=== PATIENT | female | born 1930 | race Caucasian/White ===

== ENCOUNTER 2017-05-07 18:13 | Emergency (ER) | payer MEDICARE, OTHER ==
[~2017-05-07] VITALS: Ht 162.6 cm; Wt 55.8 kg
[~2017-05-07 18:13] MED LIST changes: -TIMO.5OPSO BOTHEYES; +TIMOPTIC 0.5%1 EACH BOTHEYES
[2017-05-07 19:31] LABS: Source, Urine Clean Catch
[2017-05-07 19:36] LABS: Blood, Urine 1+ (Neg); Glucose Qualitative, Urine Neg (Neg); Ketones, Urine 1+ (Neg); Leukocyte Esterase, Urine 2+ (Neg); Nitrite, Urine Pos (Neg); Protein, Urine Neg (Neg); Urobilinogen, Urine 2+ (Normal)
[2017-05-07 19:44] LABS: Bilirubin, Urine 1+ (Neg)
[2017-05-07 19:45] LABS: Appearance, Urine Hazy (Clear); Color, Urine Yellow (P-Yellow)
[2017-05-07 19:46] LABS: Bacteria Many /hpf; Squamous Epithelial Cells Few /hpf (Few)
[2017-05-07] MEDS ORDERED: CEPH500 PO (20:11)
[2017-08-20] MEDS ORDERED: CEFD300 PO (01:13)
[2017-08-20] MEDS ORDERED: Zofran Odt4 MG PO (01:14)
[2017-09-08] MEDS ORDERED: RABE20 PO (18:53)
[2017-09-08] MEDS ORDERED: DULO60 PO (18:54)
[2017-09-08] MEDS ORDERED: ONDA4ODT (18:55)
[2017-09-08] MEDS ORDERED: Lomotil Tablet1 EACH PO (18:57)
[2017-09-10] MEDS ORDERED: Zofran Odt4 MG PO (14:34)
[2017-09-10] MEDS ORDERED: ACET325 PO (14:36)
[2017-09-10] MEDS ORDERED: TRAM50 PO (14:37)
[2017-10-21] MEDS ORDERED: Calcium + Vita1 EACH PO (11:35)
[2017-10-21] MEDS ORDERED: CIPR500 PO (11:36)
[2017-10-21] MEDS ORDERED: GAVILAX17 GM PO (14:51)
[2017-11-25] MEDS ORDERED: Alphagan P5 ML BOTHEYES (03:51)
[2017-11-25] MEDS ORDERED: CLOP75 PO (03:51)
[2017-11-25] MEDS ORDERED: BUDESONIDE EC3 MG PO (03:51)
[2017-11-25] MEDS ORDERED: LIDOCAINE PAIN1 EACH TOP (03:52)
[2017-11-25] MEDS ORDERED: DULO60 PO (03:52)
[2017-11-25] MEDS ORDERED: DOCU100 PO (03:52)
[2017-11-25] MEDS ORDERED: PANT20 PO (03:53)
[2017-11-25] MEDS ORDERED: TIMOPTIC 0.5%1 EACH BOTHEYES (03:54)
[2017-11-25] MEDS ORDERED: ALPR.25 PO (03:54)
[2017-11-25] MEDS ORDERED: ACET325 PO (03:54)
[2017-11-25] MEDS ORDERED: Antacid Maximu355 ML (03:55)
[2017-11-25] MEDS ORDERED: BISA10S PR (03:55)
[2017-11-25] MEDS ORDERED: TRAM50 PO (03:56)
[2017-11-25] MEDS ORDERED: LOPE2C PO (03:56)
[2017-11-25] MEDS ORDERED: ONDA4ODT MM ×2 (03:56→05:55)
[2017-11-25] MEDS ORDERED: Milk Of Ma400 MG/5 M PO (03:56)
[2017-12-11] MEDS ORDERED: Macrobid 100 M100 MG PO (14:12)
== END 2017-05-07 21:08 | disposition home or self-care (01) ==
LOC: ER 18:13
PROVIDERS: Emergency Medicine
DX: N39.0 Urinary tract infection, site not specified (principal); R42 Dizziness and giddiness; R19.7 Diarrhea, unspecified; E11.9 Type 2 diabetes mellitus without complications; K21.9 Gastro-esophageal reflux disease without esophagitis; E78.5 Hyperlipidemia, unspecified; F32.9 Major depressive disorder, single episode, unspecified; Z88.5 Allergy status to narcotic agent; Z88.8 Allergy status to other drugs, medicaments and biological substances; Z79.84 Long term (current) use of oral hypoglycemic drugs; Z79.899 Other long term (current) drug therapy
CPT/HCPCS: 81001; 93005; 93010; 96360; 99283; J7030; P9612

== ENCOUNTER → 2017-05-07 | Outpatient (CLI) | payer MEDICARE, OTHER ==
[~2017-05-07] MED LIST: ACET325 PO; ANTIBIOTIC; ASPI81EC; ATOR40TA PO; Alphagan P 5ML5 ML IO; Amoxicillin500 MG PO; Ativan1 MG PO; BRIM.15SO OD; BUDESONIDE EC3 MG PO; Bacid1 EACH PO; CALCAVITD PO; CEFUROXIME PO; CEPH500 PO; CHOL10002 PO; CIPR250; CIPR500 PO; CLOP75 PO; Cyclobenzaprine5 MG PO; DOCU100 PO; ENAL2.5 PO; ENAL5 PO; EZET10 PO; EZET10-20 PO; Entocort EC 3 mg3 MG PO; Esgic Tablet1 EACH PO; FERR325 PO; FERSU300 PO; Ferrous Sulfat325 MG PO; Flector1 EACH TD; GAVILAX17 GM PO; GLIP10ER PO; GLIP2.5ER; HYDACE5; HYDMOR2 PO; HYDR1TAB94 PO; IBAN2.5 PO; LEVFLO250 PO; LEVFLO500 PO; LIDO5TP TOP; LIDOCAINE1 EACH TOP; MECL25 PO; MESA400ER PO; META800 PO; METF500; METF500 PO; METF500C PO; METR500 PO; Monurol3 GM PO; NITR100 PO; NITR100CA PO; NITR50 PO; Norco 5-325 Ta1 EACH PO; ONDA4 PO; OXYACE7.5T PO; PIOG15 PO; PIOG30 PO; RABE20 PO; ROSI2; SERT100 PO; SERT25; SIMV10 PO; TIMO.5OPSO BOTHEYES; TOLT4 PO; VALA500; VITORIN PO; VYTORIN; Zofran Odt4 MG SL; [UNRECOGNIZED DRUG - REMARK]; sertaline PO
[2017-05-07 14:41] LABS: BASOPHILS ABSOLUTE AUTO 0.01 K/mm3 (0.00-0.23); BASOPHILS PERCENT AUTO 0 % (0-2); EOSINOPHILS ABSOLUTE AUTO 0.01 K/mm3 (0.00-0.68); EOSINOPHILS PERCENT AUTO 0 % (0-6); Hematocrit 37.9 % (33.0-51.0); IMMATURE GRAN PERCENT AUTO 0 % (0-1); LYMPHOCYTES ABSOLUTE AUTO 1.54 K/mm3 (0.84-5.20); LYMPHOCYTES PERCENT AUTO 40 % (21-46); MONOCYTES ABSOLUTE AUTO 0.32 K/mm3 (0.16-1.47); MONOCYTES PERCENT AUTO 8 % (4-13); Mean Corpuscular HGB 30.2 pg (26.0-34.0); Mean Corpuscular HGB Conc 31.7 g/dL (31.5-36.5); Mean Corpuscular Volume 96 fL (80-100); Mean Platelet Volume 10.8 fL (9.1-12.4); NEUTROPHILS ABSOLUTE AUTO 1.97 K/mm3 (1.96-9.15); NEUTROPHILS PERCENT AUTO 51 % (41-73); Platelet Count 249 K/mm3 (150-400); RDW Coefficient Variation 14.4 % (11.7-14.2); RDW Standard Deviation 50.7 fL (35.1-46.3); Red Blood Cell Count 3.97 M/mm3 (3.80-5.20); White Blood Cell Count 3.85 K/mm3 (4.00-11.30)
[2017-05-07 15:11] LABS: Alanine Aminotransfer (ALT/SGP 15 U/L (12-78); Albumin, Blood 3.9 g/dL (3.4-5.0); Alk Phos 87 U/L (50-136); Anion Gap 11 mmol/L (6-16); Aspartate Aminotrans (AST/SGOT 18 U/L (12-37); Bilirubin, Total 0.7 mg/dL (0.1-1.0); Blood Urea Nitrogen 19 mg/dL (8-24); CO2, Blood 24 mmol/L (21-32); Calcium, Blood 9.5 mg/dL (8.5-10.1); Chloride, Blood 105 mmol/L (98-108); Creatinine, Blood 0.61 mg/dL (0.40-1.00); Glomerular Filtration Rate >60 (60-); Glucose, Blood 147 mg/dL (70-99); Potassium, Blood 3.7 mmol/L (3.5-5.5); Sodium, Blood 140 mmol/L (136-145); Total Protein, Blood 7.9 g/dL (6.4-8.2)
== END | disposition home or self-care (01) ==
LOC: LAB SHORT 14:30 → LAB 14:30
DX: E11.9 Type 2 diabetes mellitus without complications (principal); F41.8 Other specified anxiety disorders; R60.0 Localized edema; R30.9 Painful micturition, unspecified
CPT/HCPCS: 80053; 83036; 85025; 87077; 87086; 87186

== ENCOUNTER 2017-06-15 04:29 | Emergency (ER) | payer MEDICARE, OTHER ==
[~2017-06-15] VITALS: Ht 162.6 cm; Wt 59.0 kg
[~2017-06-15 04:29] MED LIST changes: +TIMO.5OPSO BOTHEYES; -TIMOPTIC 0.5%1 EACH BOTHEYES
== END 2017-06-15 07:50 | disposition home or self-care (01) ==
LOC: ER 04:29
DX: S01.81XA Laceration without foreign body of other part of head, initial encounter (principal); E11.9 Type 2 diabetes mellitus without complications; K21.9 Gastro-esophageal reflux disease without esophagitis; E78.5 Hyperlipidemia, unspecified; F32.9 Major depressive disorder, single episode, unspecified; Z79.01 Long term (current) use of anticoagulants; Z88.5 Allergy status to narcotic agent; Z88.8 Allergy status to other drugs, medicaments and biological substances; Z91.09 Other allergy status, other than to drugs and biological substances; Z79.899 Other long term (current) drug therapy; Z79.84 Long term (current) use of oral hypoglycemic drugs; W18.09XA Striking against other object with subsequent fall, initial encounter
CPT/HCPCS: 12011; 70450; 99284

== ENCOUNTER 2017-08-07 09:30 | Inpatient (IN) | payer MEDICARE, OTHER ==
[~2017-08-07] VITALS: Ht 162.6 cm; Wt 59.9 kg
[~2017-08-07 09:30] MED LIST changes: -TIMO.5OPSO BOTHEYES; +TIMOPTIC 0.5%1 EACH BOTHEYES
[2017-08-07 10:39] LABS: BASOPHILS ABSOLUTE AUTO 0.01 K/mm3 (0.00-0.23); BASOPHILS PERCENT AUTO 0 % (0-2); EOSINOPHILS ABSOLUTE AUTO 0.02 K/mm3 (0.00-0.68); EOSINOPHILS PERCENT AUTO 0 % (0-6); Hematocrit 28.8 % (33.0-51.0); Hemoglobin 9.4 g/dL (11.5-16.0); IMMATURE GRAN ABSOLUTE AUTO 0.02 K/mm3 (0.00-0.10); IMMATURE GRAN PERCENT AUTO 0 % (0-1); LYMPHOCYTES ABSOLUTE AUTO 0.98 K/mm3 (0.84-5.20); LYMPHOCYTES PERCENT AUTO 20 % (21-46); MONOCYTES ABSOLUTE AUTO 0.41 K/mm3 (0.16-1.47); MONOCYTES PERCENT AUTO 8 % (4-13); Mean Corpuscular HGB 31.5 pg (26.0-34.0); Mean Corpuscular HGB Conc 32.6 g/dL (31.5-36.5); Mean Corpuscular Volume 97 fL (80-100); Mean Platelet Volume 10.2 fL (9.1-12.4); NEUTROPHILS ABSOLUTE AUTO 3.46 K/mm3 (1.96-9.15); NEUTROPHILS PERCENT AUTO 71 % (41-73); Platelet Count 180 K/mm3 (150-400); RDW Coefficient Variation 14.1 % (11.7-14.2); RDW Standard Deviation 50.5 fL (35.1-46.3); Red Blood Cell Count 2.98 M/mm3 (3.80-5.20)
[2017-08-07 10:57] LABS: Alanine Aminotransfer (ALT/SGP 13 U/L (12-78); Albumin, Blood 2.4 g/dL (3.4-5.0); Albumin/Globulin Ratio 0.8 (0.8-1.8); Alk Phos 89 U/L (50-136); Anion Gap 7 mmol/L (6-16); Aspartate Aminotrans (AST/SGOT 12 U/L (12-37); Bilirubin, Total 0.3 mg/dL (0.1-1.0); Blood Urea Nitrogen 18 mg/dL (8-24); Bun/Creatinine Ratio 35.7 (12.0-20.0); CO2, Blood 29 mmol/L (21-32); Calcium, Blood 8.2 mg/dL (8.5-10.1); Chloride, Blood 109 mmol/L (98-108); Globulin, Blood 2.9 g/dL (2.2-4.0); Glomerular Filtration Rate >60 (60-); Glucose, Blood 126 mg/dL (70-99); Potassium, Blood 3.6 mmol/L (3.5-5.5); Sodium, Blood 145 mmol/L (136-145); Total Protein, Blood 5.3 g/dL (6.4-8.2)
[2017-08-07 22:12] LABS: Bilirubin, Urine Neg (Neg); Blood, Urine 1+ (Neg); Glucose Qualitative, Urine Neg (Neg); Ketones, Urine Neg (Neg); Leukocyte Esterase, Urine 1+ (Neg); Nitrite, Urine Pos (Neg); Protein, Urine Neg (Neg); Urobilinogen, Urine 1+ (Normal)
[2017-08-07 22:16] LABS: Appearance, Urine Hazy (Clear); Color, Urine Yellow (P-Yellow)
[2017-08-07 22:22] LABS: White Blood Cells, Urine 25-50 /hpf (0-5)
[2017-08-07 22:23] LABS: Bacteria Many /hpf; Mucus Light ([, 0-Heavy]); Red Blood Cells, Urine Rare /hpf (0-2); Squamous Epithelial Cells Few /hpf (Few)
[2017-08-09] MEDS ORDERED: ACET325 PO (10:51)
[2017-08-09] MEDS ORDERED: Calcitonin-Sal3.7 ML (10:52)
[2017-08-09] MEDS ORDERED: Alphagan P5 ML BOTHEYES (10:53)
[2017-08-09] MEDS ORDERED: GAVILAX17 GM PO (10:54)
[2017-08-09] MEDS ORDERED: TRAM50 PO (10:58)
[2017-08-20] MEDS ORDERED: CEFD300 PO (01:13)
[2017-08-20] MEDS ORDERED: Zofran Odt4 MG PO (01:14)
== END 2017-08-10 11:13 | DRG 543 ==
LOC: ER 09:30 → MEDS 13:27 → EDPENDDIS 08-09 10:19 → ENPENDDIS 08-09 10:19 → MEDS 08-10 11:13
PROVIDERS: Emergency Medicine
DX: M48.56XA Collapsed vertebra, not elsewhere classified, lumbar region, initial encounter for fracture (principal); N39.0 Urinary tract infection, site not specified; B96.20 Unspecified Escherichia coli [E. coli] as the cause of diseases classified elsewhere; E11.9 Type 2 diabetes mellitus without complications; E78.5 Hyperlipidemia, unspecified; M85.80 Other specified disorders of bone density and structure, unspecified site; R32 Unspecified urinary incontinence; M47.896 Other spondylosis, lumbar region; H40.9 Unspecified glaucoma; H91.90 Unspecified hearing loss, unspecified ear; Z66 Do not resuscitate; F41.9 Anxiety disorder, unspecified; F32.9 Major depressive disorder, single episode, unspecified; I25.10 Atherosclerotic heart disease of native coronary artery without angina pectoris; Z91.81 History of falling; R29.6 Repeated falls; Z79.899 Other long term (current) drug therapy; Z79.84 Long term (current) use of oral hypoglycemic drugs; Z79.01 Long term (current) use of anticoagulants; Z95.5 Presence of coronary angioplasty implant and graft; Z87.440 Personal history of urinary (tract) infections; Z86.73 Personal history of transient ischemic attack (TIA), and cerebral infarction without residual deficits; Z85.819 Personal history of malignant neoplasm of unspecified site of lip, oral cavity, and pharynx; Z88.8 Allergy status to other drugs, medicaments and biological substances; Z88.5 Allergy status to narcotic agent
CPT/HCPCS: 72100; 80053; 81001; 82947; 85025; 87077; 87081; 87086; 87186; 96374; 96375; 97116; 97162; 97166; 97530; 97535; 99285-25; G8978; G8979; G8987; G8988; J0630; J0696; J1650; J2405; J3010; J7030

== ENCOUNTER 2017-08-26 18:10 | Inpatient (IN) | payer MEDICARE, OTHER ==
[~2017-08-26] VITALS: Ht 162.6 cm; Wt 61.8 kg
[~2017-08-26 18:10] MED LIST changes: +Alphagan P5 ML BOTHEYES; +CEFD300 PO; +Calcitonin-Sal3.7 ML; +TRAM50 PO; +Zofran Odt4 MG PO
[2017-08-26 20:25] LABS: BASOPHILS ABSOLUTE AUTO 0.02 K/mm3 (0.00-0.23); BASOPHILS PERCENT AUTO 0 % (0-2); EOSINOPHILS ABSOLUTE AUTO 0.01 K/mm3 (0.00-0.68); EOSINOPHILS PERCENT AUTO 0 % (0-6); Hematocrit 31.8 % (33.0-51.0); Hemoglobin 10.5 g/dL (11.5-16.0); IMMATURE GRAN ABSOLUTE AUTO 0.03 K/mm3 (0.00-0.10); IMMATURE GRAN PERCENT AUTO 0 % (0-1); LYMPHOCYTES ABSOLUTE AUTO 1.06 K/mm3 (0.84-5.20); LYMPHOCYTES PERCENT AUTO 11 % (21-46); MONOCYTES PERCENT AUTO 9 % (4-13); Mean Corpuscular HGB 30.6 pg (26.0-34.0); Mean Corpuscular Volume 93 fL (80-100); Mean Platelet Volume 9.9 fL (9.1-12.4); NEUTROPHILS PERCENT AUTO 80 % (41-73); Platelet Count 268 K/mm3 (150-400); RDW Coefficient Variation 13.3 % (11.7-14.2); RDW Standard Deviation 45.1 fL (35.1-46.3); Red Blood Cell Count 3.43 M/mm3 (3.80-5.20); White Blood Cell Count 9.42 K/mm3 (4.00-11.30)
[2017-08-26 20:44] LABS: Alanine Aminotransfer (ALT/SGP 16 U/L (12-78); Albumin, Blood 2.3 g/dL (3.4-5.0); Albumin/Globulin Ratio 0.7 (0.8-1.8); Alk Phos 140 U/L (50-136); Anion Gap 9 mmol/L (6-16); Aspartate Aminotrans (AST/SGOT 12 U/L (12-37); Bilirubin, Total 0.4 mg/dL (0.1-1.0); Blood Urea Nitrogen 23 mg/dL (8-24); Bun/Creatinine Ratio 35.1 (12.0-20.0); CO2, Blood 25 mmol/L (21-32); Calcium, Blood 8.1 mg/dL (8.5-10.1); Chloride, Blood 105 mmol/L (98-108); Creatinine, Blood 0.66 mg/dL (0.40-1.00); Globulin, Blood 3.4 g/dL (2.2-4.0); Glomerular Filtration Rate >60 (60-); Glucose, Blood 173 mg/dL (70-99); Potassium, Blood 3.8 mmol/L (3.5-5.5); Sodium, Blood 139 mmol/L (136-145); Total Protein, Blood 5.7 g/dL (6.4-8.2)
[2017-08-27 08:49] LABS: Source, Urine Catheter
[2017-08-27 09:08] LABS: Bilirubin, Urine Neg (Neg); Blood, Urine Neg (Neg); Glucose Qualitative, Urine Neg (Neg); Ketones, Urine Neg (Neg); Leukocyte Esterase, Urine 2+ (Neg); Nitrite, Urine Pos (Neg); Protein, Urine Neg (Neg); Specific Gravity, Urine 1.015 (1.003-1.022); Urobilinogen, Urine NORM (Normal)
[2017-08-27 09:36] LABS: Appearance, Urine Clear (Clear); Color, Urine Yellow (P-Yellow)
[2017-08-27 09:37] LABS: Bacteria Many /hpf; Red Blood Cells, Urine Not Seen /hpf (0-2); Squamous Epithelial Cells Few /hpf (Few); Yeast/Fungi Urine Mod /hpf
[2017-08-27 09:38] LABS: White Blood Cells, Urine 25-50 /hpf (0-5)
[2017-08-27] MEDS ORDERED: ALPR.25 PO (17:09)
[2017-08-29 04:40] LABS: BASOPHILS ABSOLUTE AUTO 0.02 K/mm3 (0.00-0.23); BASOPHILS PERCENT AUTO 0 % (0-2); EOSINOPHILS ABSOLUTE AUTO 0.03 K/mm3 (0.00-0.68); EOSINOPHILS PERCENT AUTO 1 % (0-6); Hemoglobin 8.7 g/dL (11.5-16.0); IMMATURE GRAN ABSOLUTE AUTO 0.01 K/mm3 (0.00-0.10); IMMATURE GRAN PERCENT AUTO 0 % (0-1); LYMPHOCYTES ABSOLUTE AUTO 1.17 K/mm3 (0.84-5.20); LYMPHOCYTES PERCENT AUTO 22 % (21-46); MONOCYTES PERCENT AUTO 10 % (4-13); Mean Corpuscular HGB 30.1 pg (26.0-34.0); Mean Corpuscular HGB Conc 32.2 g/dL (31.5-36.5); Mean Corpuscular Volume 93 fL (80-100); NEUTROPHILS ABSOLUTE AUTO 3.55 K/mm3 (1.96-9.15); NEUTROPHILS PERCENT AUTO 67 % (41-73); Platelet Count 222 K/mm3 (150-400); RDW Coefficient Variation 13.3 % (11.7-14.2); RDW Standard Deviation 45.4 fL (35.1-46.3); Red Blood Cell Count 2.89 M/mm3 (3.80-5.20); White Blood Cell Count 5.28 K/mm3 (4.00-11.30)
[2017-08-29 04:57] LABS: Anion Gap 7 mmol/L (6-16); Blood Urea Nitrogen 16 mg/dL (8-24); Bun/Creatinine Ratio 31.4 (12.0-20.0); CO2, Blood 23 mmol/L (21-32); Calcium, Blood 7.5 mg/dL (8.5-10.1); Chloride, Blood 110 mmol/L (98-108); Creatinine, Blood 0.51 mg/dL (0.40-1.00); Glomerular Filtration Rate >60 (60-); Glucose, Blood 126 mg/dL (70-99); Potassium, Blood 3.7 mmol/L (3.5-5.5); Sodium, Blood 140 mmol/L (136-145)
[2017-08-29] MEDS ORDERED: GLIP5ER PO (16:22)
[2017-08-29] MEDS ORDERED: OXYB5 PO (16:28)
[2017-08-29] MEDS ORDERED: PANT20 PO (16:38)
== END 2017-08-29 16:50 | disposition home or self-care (01) | DRG 387 ==
LOC: ER 18:10 → MEDS 18:11 → ENPENDDIS 08-29 15:57 → MEDS 08-29 16:50
PROVIDERS: Emergency Medicine; Internal Medicine
DX: K51.90 Ulcerative colitis, unspecified, without complications (principal); D64.9 Anemia, unspecified; E11.9 Type 2 diabetes mellitus without complications; R82.79 Other abnormal findings on microbiological examination of urine; B96.20 Unspecified Escherichia coli [E. coli] as the cause of diseases classified elsewhere; I10 Essential (primary) hypertension; H40.9 Unspecified glaucoma; I25.10 Atherosclerotic heart disease of native coronary artery without angina pectoris; Z66 Do not resuscitate; M48.56XG Collapsed vertebra, not elsewhere classified, lumbar region, subsequent encounter for fracture with delayed healing; N95.2 Postmenopausal atrophic vaginitis; M48.54XG Collapsed vertebra, not elsewhere classified, thoracic region, subsequent encounter for fracture with delayed healing; Z96.642 Presence of left artificial hip joint; Z96.652 Presence of left artificial knee joint; E78.5 Hyperlipidemia, unspecified; Z79.899 Other long term (current) drug therapy; Z90.49 Acquired absence of other specified parts of digestive tract; Z87.440 Personal history of urinary (tract) infections; Z98.890 Other specified postprocedural states; Z79.84 Long term (current) use of oral hypoglycemic drugs; Z88.5 Allergy status to narcotic agent; Z88.8 Allergy status to other drugs, medicaments and biological substances; Z86.73 Personal history of transient ischemic attack (TIA), and cerebral infarction without residual deficits; Z87.442 Personal history of urinary calculi
CPT/HCPCS: 36415; 74176; 80048; 80053; 81001; 82947; 83036; 83690; 85025; 85651; 87086; 87493; 96361; 96372; 96374; 96375; 96376; 97161; 97166; 97530; 99285-25; C9113; G0378; G0515; G8978; G8979; G8987; G8988; J0694; J0697; J1650; J2405; J3010; J7030; J7120

== ENCOUNTER 2017-09-17 21:37 | Emergency (ER) | payer MEDICARE, OTHER ==
[~2017-09-17] VITALS: Ht 160 cm; Wt 59.0 kg
[~2017-09-17 21:37] MED LIST changes: +ALPR.25 PO; +DULO60; +GLIP5ER PO; +Lomotil Tablet1 EACH PO; +ONDA4ODT; +OXYB5 PO; +PANT20 PO
[2017-09-17 22:08] LABS: BASOPHILS ABSOLUTE AUTO 0.01 K/mm3 (0.00-0.23); BASOPHILS PERCENT AUTO 0 % (0-2); EOSINOPHILS ABSOLUTE AUTO 0.01 K/mm3 (0.00-0.68); EOSINOPHILS PERCENT AUTO 0 % (0-6); Hematocrit 32.2 % (33.0-51.0); Hemoglobin 10.6 g/dL (11.5-16.0); IMMATURE GRAN ABSOLUTE AUTO 0.01 K/mm3 (0.00-0.10); IMMATURE GRAN PERCENT AUTO 0 % (0-1); LYMPHOCYTES ABSOLUTE AUTO 1.26 K/mm3 (0.84-5.20); LYMPHOCYTES PERCENT AUTO 25 % (21-46); MONOCYTES ABSOLUTE AUTO 0.58 K/mm3 (0.16-1.47); MONOCYTES PERCENT AUTO 12 % (4-13); Mean Corpuscular HGB 30.5 pg (26.0-34.0); Mean Corpuscular HGB Conc 32.9 g/dL (31.5-36.5); Mean Corpuscular Volume 93 fL (80-100); Mean Platelet Volume 10.1 fL (9.1-12.4); NEUTROPHILS ABSOLUTE AUTO 3.11 K/mm3 (1.96-9.15); NEUTROPHILS PERCENT AUTO 63 % (41-73); Platelet Count 258 K/mm3 (150-400); RDW Coefficient Variation 14.4 % (11.7-14.2); RDW Standard Deviation 49.5 fL (35.1-46.3); Red Blood Cell Count 3.47 M/mm3 (3.80-5.20); White Blood Cell Count 4.98 K/mm3 (4.00-11.30)
[2017-09-17 22:27] LABS: Alanine Aminotransfer (ALT/SGP 14 U/L (12-78); Albumin, Blood 2.5 g/dL (3.4-5.0); Albumin/Globulin Ratio 0.7 (0.8-1.8); Alk Phos 122 U/L (50-136); Anion Gap 9 mmol/L (6-16); Aspartate Aminotrans (AST/SGOT 13 U/L (12-37); Bilirubin, Total 0.5 mg/dL (0.1-1.0); Blood Urea Nitrogen 18 mg/dL (8-24); Bun/Creatinine Ratio 37.7 (12.0-20.0); CO2, Blood 29 mmol/L (21-32); Calcium, Blood 8.1 mg/dL (8.5-10.1); Chloride, Blood 103 mmol/L (98-108); Creatinine, Blood 0.48 mg/dL (0.40-1.00); Globulin, Blood 3.6 g/dL (2.2-4.0); Glomerular Filtration Rate >60 (60-); Glucose, Blood 108 mg/dL (70-99); Magnesium, Blood 1.5 mg/dL (1.6-2.4); Potassium, Blood 3.5 mmol/L (3.5-5.5); Sodium, Blood 141 mmol/L (136-145); Total Protein, Blood 6.1 g/dL (6.4-8.2)
[2017-09-18] MEDS ORDERED: ONDA4ODT MM (02:03)
[2017-09-18] MEDS ORDERED: Zofran Odt4 MG PO (02:08)
== END 2017-09-18 02:20 | disposition home or self-care (01) ==
LOC: ER 21:37
PROVIDERS: Emergency Medicine
DX: R11.2 Nausea with vomiting, unspecified (principal); R19.7 Diarrhea, unspecified; E83.42 Hypomagnesemia; E11.9 Type 2 diabetes mellitus without complications; K21.9 Gastro-esophageal reflux disease without esophagitis; F32.9 Major depressive disorder, single episode, unspecified; Z88.5 Allergy status to narcotic agent; Z88.8 Allergy status to other drugs, medicaments and biological substances; Z91.09 Other allergy status, other than to drugs and biological substances; Z79.899 Other long term (current) drug therapy; Z79.84 Long term (current) use of oral hypoglycemic drugs
CPT/HCPCS: 36415; 74176; 80053; 83690; 83735; 85025; 96365; 96367; 96375; 99284-25; J2405; J3475; J3480; J7030

== ENCOUNTER 2017-10-05 07:59 | Emergency (ER) | payer MEDICARE, OTHER ==
[~2017-10-05] VITALS: Ht 162.6 cm; Wt 61.2 kg
[~2017-10-05 07:59] MED LIST changes: +ONDA4ODT MM
[2017-10-05] MEDS ORDERED: LIDO700A20 TOP (09:27)
[2017-10-05] MEDS ORDERED: Ultram50 MG PO (09:27)
== END 2017-10-05 10:39 | disposition home or self-care (01) ==
LOC: ER 07:59
DX: S32.039D Unspecified fracture of third lumbar vertebra, subsequent encounter for fracture with routine healing (principal); S22.089D Unspecified fracture of T11-T12 vertebra, subsequent encounter for fracture with routine healing; E11.9 Type 2 diabetes mellitus without complications; K21.9 Gastro-esophageal reflux disease without esophagitis; E78.5 Hyperlipidemia, unspecified; F32.9 Major depressive disorder, single episode, unspecified; Z88.5 Allergy status to narcotic agent; Z91.048 Other nonmedicinal substance allergy status; Z88.8 Allergy status to other drugs, medicaments and biological substances; Z79.899 Other long term (current) drug therapy; Z79.84 Long term (current) use of oral hypoglycemic drugs; Z79.01 Long term (current) use of anticoagulants
CPT/HCPCS: 99283

== ENCOUNTER 2017-10-09 21:43 | Emergency (ER) | payer MEDICARE, OTHER ==
[~2017-10-09] VITALS: Ht 162.6 cm; Wt 61.2 kg
[~2017-10-09 21:43] MED LIST changes: +LIDO700A20 TOP; +Ultram50 MG PO
== END 2017-10-10 01:30 | disposition home or self-care (01) ==
LOC: ER 21:43
DX: E11.649 Type 2 diabetes mellitus with hypoglycemia without coma (principal); Z88.8 Allergy status to other drugs, medicaments and biological substances; Z88.5 Allergy status to narcotic agent; Z79.899 Other long term (current) drug therapy; K21.9 Gastro-esophageal reflux disease without esophagitis; E78.5 Hyperlipidemia, unspecified; F32.9 Major depressive disorder, single episode, unspecified
CPT/HCPCS: 82947; 99284

== ENCOUNTER 2017-10-10 07:15 | Emergency (ER) | payer MEDICARE, OTHER ==
[~2017-10-10] VITALS: Ht 162.6 cm; Wt 62.1 kg
[2017-10-10 08:31] LABS: BASOPHILS ABSOLUTE AUTO 0.01 K/mm3 (0.00-0.23); BASOPHILS PERCENT AUTO 0 % (0-2); EOSINOPHILS ABSOLUTE AUTO 0.03 K/mm3 (0.00-0.68); EOSINOPHILS PERCENT AUTO 1 % (0-6); Hematocrit 31.7 % (33.0-51.0); Hemoglobin 10.3 g/dL (11.5-16.0); IMMATURE GRAN ABSOLUTE AUTO 0.01 K/mm3 (0.00-0.10); IMMATURE GRAN PERCENT AUTO 0 % (0-1); LYMPHOCYTES ABSOLUTE AUTO 0.69 K/mm3 (0.84-5.20); LYMPHOCYTES PERCENT AUTO 13 % (21-46); MONOCYTES ABSOLUTE AUTO 0.37 K/mm3 (0.16-1.47); MONOCYTES PERCENT AUTO 7 % (4-13); Mean Corpuscular HGB 30.4 pg (26.0-34.0); Mean Corpuscular HGB Conc 32.5 g/dL (31.5-36.5); Mean Corpuscular Volume 94 fL (80-100); Mean Platelet Volume 9.9 fL (9.1-12.4); NEUTROPHILS ABSOLUTE AUTO 4.38 K/mm3 (1.96-9.15); NEUTROPHILS PERCENT AUTO 80 % (41-73); Platelet Count 274 K/mm3 (150-400); RDW Coefficient Variation 16.6 % (11.7-14.2); RDW Standard Deviation 56.7 fL (35.1-46.3); Red Blood Cell Count 3.39 M/mm3 (3.80-5.20); White Blood Cell Count 5.49 K/mm3 (4.00-11.30)
[2017-10-10 08:44] LABS: Alanine Aminotransfer (ALT/SGP 21 U/L (12-78); Albumin, Blood 2.3 g/dL (3.4-5.0); Albumin/Globulin Ratio 0.6 (0.8-1.8); Alk Phos 114 U/L (50-136); Anion Gap 5 mmol/L (6-16); Aspartate Aminotrans (AST/SGOT 24 U/L (12-37); Bilirubin, Total 0.5 mg/dL (0.1-1.0); Blood Urea Nitrogen 25 mg/dL (8-24); Bun/Creatinine Ratio 45.5 (12.0-20.0); CO2, Blood 31 mmol/L (21-32); Calcium, Blood 7.9 mg/dL (8.5-10.1); Chloride, Blood 103 mmol/L (98-108); Creatinine, Blood 0.55 mg/dL (0.40-1.00); Globulin, Blood 3.7 g/dL (2.2-4.0); Glomerular Filtration Rate >60 (60-); Glucose, Blood 130 mg/dL (70-99); Potassium, Blood 3.3 mmol/L (3.5-5.5); Sodium, Blood 139 mmol/L (136-145)
== END 2017-10-10 11:16 | disposition home or self-care (01) ==
LOC: ER 07:15
PROVIDERS: Emergency Medicine
DX: E11.649 Type 2 diabetes mellitus with hypoglycemia without coma (principal); G89.29 Other chronic pain; Z88.5 Allergy status to narcotic agent; Z88.8 Allergy status to other drugs, medicaments and biological substances; Z91.048 Other nonmedicinal substance allergy status; Z79.899 Other long term (current) drug therapy; Z79.84 Long term (current) use of oral hypoglycemic drugs
CPT/HCPCS: 36415; 80053; 82947; 85025; 99283

== ENCOUNTER 2017-10-15 02:21 | Observation (INO) | payer MEDICARE, OTHER ==
[~2017-10-15] VITALS: Ht 162.6 cm; Wt 61.2 kg
[~2017-10-15 02:21] MED LIST changes: -DULO60; +DULO60 PO
[2017-10-15 03:42] LABS: BASOPHILS ABSOLUTE AUTO 0.02 K/mm3 (0.00-0.23); BASOPHILS PERCENT AUTO 0 % (0-2); EOSINOPHILS ABSOLUTE AUTO 0.01 K/mm3 (0.00-0.68); EOSINOPHILS PERCENT AUTO 0 % (0-6); Hematocrit 29.8 % (33.0-51.0); Hemoglobin 9.6 g/dL (11.5-16.0); IMMATURE GRAN ABSOLUTE AUTO 0.03 K/mm3 (0.00-0.10); IMMATURE GRAN PERCENT AUTO 1 % (0-1); LYMPHOCYTES ABSOLUTE AUTO 0.63 K/mm3 (0.84-5.20); LYMPHOCYTES PERCENT AUTO 14 % (21-46); MONOCYTES ABSOLUTE AUTO 0.37 K/mm3 (0.16-1.47); MONOCYTES PERCENT AUTO 8 % (4-13); Mean Corpuscular HGB 30.6 pg (26.0-34.0); Mean Corpuscular HGB Conc 32.2 g/dL (31.5-36.5); Mean Corpuscular Volume 95 fL (80-100); Mean Platelet Volume 9.4 fL (9.1-12.4); NEUTROPHILS ABSOLUTE AUTO 3.58 K/mm3 (1.96-9.15); NEUTROPHILS PERCENT AUTO 77 % (41-73); Platelet Count 349 K/mm3 (150-400); RDW Coefficient Variation 17.2 % (11.7-14.2); RDW Standard Deviation 60.5 fL (35.1-46.3); Red Blood Cell Count 3.14 M/mm3 (3.80-5.20); White Blood Cell Count 4.64 K/mm3 (4.00-11.30)
[2017-10-15 03:45] LABS: Calcium, Ionized (POC) 1.15 mmol/L (1.10-1.46); Chloride (POC) 100 mmol/L (98-108); Creatinine (POC) 0.5 mg/dL (0.6-1.0); Glucose (ISTAT POC) 117 mg/dL (70-99); Hemoglobin (POC) 9.2 g/dL (12.0-16.0); Potassium (POC) 2.9 mmol/L (3.5-5.5); Sodium (POC) 142 mmol/L (135-148); Total CO2 (POC) 27 mmol/L (21-32)
[2017-10-15 03:54] LABS: Anion Gap 6 mmol/L (6-16); Blood Urea Nitrogen 20 mg/dL (8-24); Bun/Creatinine Ratio 36.6 (12.0-20.0); CO2, Blood 30 mmol/L (21-32); Calcium, Blood 7.5 mg/dL (8.5-10.1); Chloride, Blood 107 mmol/L (98-108); Creatinine, Blood 0.55 mg/dL (0.40-1.00); Glomerular Filtration Rate >60 (60-); Glucose, Blood 151 mg/dL (70-99); Magnesium, Blood 1.3 mg/dL (1.6-2.4); Sodium, Blood 143 mmol/L (136-145)
[2017-10-16 06:10] LABS: Anion Gap 5 mmol/L (6-16); Blood Urea Nitrogen 20 mg/dL (8-24); Bun/Creatinine Ratio 37.3 (12.0-20.0); CO2, Blood 28 mmol/L (21-32); Calcium, Blood 7.8 mg/dL (8.5-10.1); Chloride, Blood 107 mmol/L (98-108); Creatinine, Blood 0.54 mg/dL (0.40-1.00); Glomerular Filtration Rate >60 (60-); Glucose, Blood 86 mg/dL (70-99); Magnesium, Blood 1.6 mg/dL (1.6-2.4); Potassium, Blood 4.5 mmol/L (3.5-5.5); Sodium, Blood 140 mmol/L (136-145)
[2017-10-16] MEDS ORDERED: Prinivil10 MG PO (15:23)
[2017-10-21] MEDS ORDERED: Calcium + Vita1 EACH PO (11:35)
[2017-10-21] MEDS ORDERED: CIPR500 PO (11:36)
[2017-10-21] MEDS ORDERED: GAVILAX17 GM PO (14:51)
== END 2017-10-16 15:17 | disposition home or self-care (01) ==
LOC: ER 02:21 → MEDS 02:22
PROVIDERS: Emergency Medicine; Hospitalist
DX: E11.649 Type 2 diabetes mellitus with hypoglycemia without coma (principal); G93.41 Metabolic encephalopathy; E83.42 Hypomagnesemia; E87.6 Hypokalemia; M48.55XA Collapsed vertebra, not elsewhere classified, thoracolumbar region, initial encounter for fracture; I10 Essential (primary) hypertension; K21.9 Gastro-esophageal reflux disease without esophagitis; E78.5 Hyperlipidemia, unspecified; M85.80 Other specified disorders of bone density and structure, unspecified site; D64.9 Anemia, unspecified; I25.10 Atherosclerotic heart disease of native coronary artery without angina pectoris; K52.9 Noninfective gastroenteritis and colitis, unspecified; Z86.73 Personal history of transient ischemic attack (TIA), and cerebral infarction without residual deficits; Z87.440 Personal history of urinary (tract) infections; Z88.5 Allergy status to narcotic agent; Z91.041 Radiographic dye allergy status; Z88.8 Allergy status to other drugs, medicaments and biological substances; Z79.84 Long term (current) use of oral hypoglycemic drugs; Z79.899 Other long term (current) drug therapy
CPT/HCPCS: 36415; 80047; 80048; 82947; 83735; 85014; 85025; 96361; 96365; 96372; 99285-25; C9113; G0378; J1650; J3475; J7042